=== PATIENT | male | born 1990 | race Hispanic/Latino ===

== ENCOUNTER 2023-12-21 14:17 | Emergency (ER) | payer OTHER ==
[2023-12-21] VITALS (12 sets, daily range): BP systolic 139–186; BP diastolic 90–103
[~2023-12-21] VITALS: Ht 185.4 cm; Wt 137.8 kg
[~2023-12-21 14:17] MED LIST: CIPROFLOXACN500 MG PO; FLOXIN OTIC0.3 % OT; MEDDOSEPAK PO; MELOXICAM7.5 MG PO; METHOCARBAMOL500 MG PO; ORPHENADRINE100 MG PO; ULTRAM50 M1 PO
[2023-12-21] MEDS ORDERED: KETOROLAC TROMETHAMINE 30 MG/ML SDV IV ONE (14:30)
[2023-12-21] MEDS ORDERED: METOCLOPRAMIDE HCL 10 MG/2 ML SDV IV ONE (14:30)
[2023-12-21] MEDS ORDERED: DiphenhydrAMINE HCL 50 MG/ML SDV IV ONE (14:30)
[2023-12-21 14:58] LABS: BASO% 1.2 % (0-3); EOS% 3.6 % (0-8); HEMATOCRIT 44.8 % (39.0-50.0); HEMOGLOBIN 15.2 g/dl (14.0-18.0); IMMATURE GRANULOCYTES 0.1 % (0.0-5.0); LYMPH% 20.9 % (15-41); MEAN CELL VOLUME 80.7 fL CALC (80.0-100.0); MEAN CORPUSCULAR HGB 27.4 pG CALC (26.0-32.0); MEAN CORPUSCULAR HGB CONC 33.9 g/dL CAL (32.0-36.0); MONO% 4.9 % (2-13); NEUT# 5.82 thou/uL (1.82-7.42); NEUT% 69.3 % (42-76); RED BLOOD COUNT 5.55 mill/uL (4.70-6.10); RED CELL DISTRI WIDTH 12.2 % (11.5-15.5)
[2023-12-21 15:12] LABS: ALBUMIN 4.6 g/dL (3.2-5.0); BILIRUBIN, TOTAL 0.8 mg/dL (0.2-1.3); CREATININE 0.9 mg/dL (0.7-1.3); POTASSIUM 4.4 mmol/l (3.5-5.1); TOTAL PROTEIN 8.1 g/dL (6.3-8.2)
[2023-12-21] MEDS ORDERED: AMOX/K CLAV875 M1 PO (16:28)
[2023-12-22] MEDS ORDERED: HYDROCO/APAP1 TA9 PO (15:53)
== END 2023-12-21 16:54 | disposition home or self-care (01) | DRG 153 ==
LOC: ED 14:17
PROVIDERS: Family Medicine
DX: J32.9 Chronic sinusitis, unspecified (principal); E11.9 Type 2 diabetes mellitus without complications; I10 Essential (primary) hypertension; E66.01 Morbid (severe) obesity due to excess calories; E78.00 Pure hypercholesterolemia, unspecified

== ENCOUNTER 2023-12-23 10:33 | Inpatient (IN) | payer OTHER ==
[2023-12-23] VITALS (14 sets, daily range): BP systolic 135–173; BP diastolic 88–106
[~2023-12-23] VITALS: Ht 185.4 cm; Wt 134.0 kg
[~2023-12-23 10:33] MED LIST changes: +AMOX/K CLAV875 M1 PO; +HYDROCO/APAP1 TA9 PO
[2023-12-23] MEDS ORDERED: KETOROLAC TROMETHAMINE 30 MG/ML SDV IV ONE (10:35)
[2023-12-23] MEDS ORDERED: MAGNESIUM SULFATE HEPTAHYDRATE 50 ML IV ONE (10:35)
[2023-12-23] MEDS ORDERED: DiphenhydrAMINE HCL 50 MG/ML SDV IV ONE (10:40)
[2023-12-23] MEDS ORDERED: METOCLOPRAMIDE HCL 10 MG/2 ML SDV IV ONE (10:40)
[2023-12-23 11:38] LABS: BASO% 0.5 % (0-3); EOS% 0.5 % (0-8); HEMATOCRIT 45.6 % (39.0-50.0); HEMOGLOBIN 15.7 g/dl (14.0-18.0); IMMATURE GRANULOCYTES 0.2 % (0.0-5.0); LYMPH% 13.8 % (15-41); MEAN CELL VOLUME 79.2 fL CALC (80.0-100.0); MEAN CORPUSCULAR HGB 27.3 pG CALC (26.0-32.0); MEAN CORPUSCULAR HGB CONC 34.4 g/dL CAL (32.0-36.0); MONO% 4.9 % (2-13); NEUT# 7.92 thou/uL (1.82-7.42); NEUT% 80.1 % (42-76); RED BLOOD COUNT 5.76 mill/uL (4.70-6.10); RED CELL DISTRI WIDTH 11.9 % (11.5-15.5)
[2023-12-23] MEDS ORDERED: SUMAtriptan SUCCINATE 6 MG/0.5 ML SDV SC ONE ×2 (11:55→21:55)
[2023-12-23 12:02] LABS: ALBUMIN 4.8 g/dL (3.2-5.0); CREATININE 0.8 mg/dL (0.7-1.3); TOTAL PROTEIN 8.3 g/dL (6.3-8.2)
[2023-12-23 12:03] LABS: BILIRUBIN, TOTAL 1.3 mg/dL (0.2-1.3)
[2023-12-23] MEDS ORDERED: SKYRIZI (14:47)
[2023-12-23] MEDS ORDERED: MAGNESIUM HYDROXIDE 30 ML UDC PO PRN (14:55)
[2023-12-23] MEDS ORDERED: ACETAMINOPHEN 325 MG/TAB PO PRN (14:55)
[2023-12-23 15:09] LABS: INTERNATIONAL NORMALIZED RATIO 1.2 RATIO (0.7-1.3)
[2023-12-23 15:11] LABS: CALCULATED LDLCHOLESTEROL 156 mg/dL (62-129 (CALC)); CHOLESTEROL HDL RATIO 5.7 (<4.4 (CALC)); HDL CHOLESTEROL 39 mg/dL (39.0-59.0); TOTAL CHOLESTEROL 223 mg/dl (0-199); TOTAL TRIGLYCERIDES 140 mg/dl (0-149); VLDL CHOLESTROL 28 mg/dl (5-56 (CALC))
[2023-12-23 15:12] LABS: PROTHROMBIN TIME 11.1 SECONDS (9.0-12.5)
[2023-12-23] MEDS ORDERED: ONDANSETRON HCl 4 MG/2 ML SDV IV PRN (15:35)
[2023-12-23] MEDS ORDERED: SODIUM CHLORIDE 0.9% 1,000 ML IV PRN (16:40)
[2023-12-23] MEDS ORDERED: INSULIN LISPRO 100 UNITS/ML ML SC SCH (17:00)
[2023-12-23] MEDS ORDERED: METOCLOPRAMIDE HCL 10 MG/2 ML SDV IV PRN (18:00)
[2023-12-23] MEDS ORDERED: DiphenhydrAMINE HCL 50 MG/ML SDV IV PRN (18:00)
[2023-12-23] MEDS ORDERED: KETOROLAC TROMETHAMINE 30 MG/ML SDV IV PRN (18:00)
[2023-12-23] MEDS ORDERED: ENOXAPARIN SODIUM 40 MG/0.4 ML SYR SC SCH (21:00)
[2023-12-24 00:19] VITALS: BP 135/83
[2023-12-24 03:58] VITALS: BP 129/88
[2023-12-24 04:07] VITALS: BP 129/88
[2023-12-24 05:27] LABS: BASO% 0.7 % (0-3); EOS% 1.7 % (0-8); HEMATOCRIT 42.2 % (39.0-50.0); HEMOGLOBIN 14.8 g/dl (14.0-18.0); IMMATURE GRANULOCYTES 0.1 % (0.0-5.0); LYMPH% 32.3 % (15-41); MEAN CELL VOLUME 79.8 fL CALC (80.0-100.0); MEAN CORPUSCULAR HGB CONC 35.1 g/dL CAL (32.0-36.0); MONO% 7.8 % (2-13); NEUT# 4.68 thou/uL (1.82-7.42); NEUT% 57.4 % (42-76); RED BLOOD COUNT 5.29 mill/uL (4.70-6.10); RED CELL DISTRI WIDTH 12.1 % (11.5-15.5)
[2023-12-24] MEDS ORDERED: HYDROCO/APAP1 TA9 PO (05:37)
[2023-12-24 05:44] LABS: ALBUMIN 4.1 g/dL (3.2-5.0); BILIRUBIN, TOTAL 0.9 mg/dL (0.2-1.3); CHOLESTEROL HDL RATIO 5.4 (<4.4 (CALC)); CREATININE 0.8 mg/dL (0.7-1.3); MAGNESIUM 2.1 mg/dL (1.6-2.3); TOTAL PROTEIN 6.8 g/dL (6.3-8.2)
[2023-12-24 07:31] VITALS: BP 139/85
[2023-12-24] MEDS ORDERED: INSULIN DETEMIR 100 UNITS/ML SC SCH (09:00)
[2023-12-24] MEDS ORDERED: SUMAtriptan SUCCINATE 6 MG/0.5 ML SDV SC SCH (12:00)
[2023-12-24 18:42] VITALS: BP 142/84
[2023-12-24 19:05] VITALS: BP 142/84
[2023-12-24] MEDS ORDERED: HYDROmorphone HCL 2 MG/AMP IV ONE (20:35)
[2023-12-24] MEDS ORDERED: HYDROmorphone HCL 2 MG/AMP IV PRN (21:00)
[2023-12-24] MEDS ORDERED: LEVEMIR100 UNIT SC (21:56)
[2023-12-24] MEDS ORDERED: SUMATRIPTA6 MG/0.51 SC (21:57)
[2023-12-25] MEDS ORDERED: SUMAtriptan SUCCINATE 6 MG/0.5 ML SDV SC PRN (00:01)
== END 2023-12-24 23:00 | disposition short-term general hospital (02) | DRG 153 ==
LOC: ED 10:33 → ED-I 13:05 → ED 14:55 → MS2 14:56
PROVIDERS: Family Medicine; ADMIT Student in an Organized Health Care Education/Training Program; ATTEND Student in an Organized Health Care Education/Training Program
DX: J01.40 Acute pansinusitis, unspecified (principal); H49.02 Third [oculomotor] nerve palsy, left eye; I10 Essential (primary) hypertension; E11.65 Type 2 diabetes mellitus with hyperglycemia; E78.00 Pure hypercholesterolemia, unspecified; L40.50 Arthropathic psoriasis, unspecified; E66.01 Morbid (severe) obesity due to excess calories; Z79.60 Long term (current) use of unspecified immunomodulators and immunosuppressants; Z91.199 Patient's noncompliance with other medical treatment and regimen due to unspecified reason
CPT/HCPCS: A9579; J1650; J3475